=== PATIENT | female | born 1970 | race Caucasian/White ===

== ENCOUNTER 2020-03-04 10:06 | Emergency (ER) | payer OTHER, SELFPAY ==
[2020-03-04 10:15] VITALS: BP 142/89; PULSE 69; RESP 20; TEMP 36.6; O2SAT 99
--- NOTE | 2020-03-04 10:33 | ED.URI ---
HPI - URI/Sore Throat General Chief Complaint: Upper Respiratory Infection Stated Complaint: sore throat Time Seen by Provider: 03/04/20 10:07 Source: patient Mode of arrival: ambulatory Limitations: no limitations History of Present Illness HPI Narrative: 49-year-old female presents to [facility] care with complaints of sore throat, body aches and nasal congestion since yesterday. Patient has been taking [id number] Tylenol with minimal relief. Patient denies fever, chills, cough, shortness of breath, wheezing, runny nose, nausea, vomiting or diarrhea. Patient denies sick contacts. Patient denies recent travel. Patient denies concerns for STDs. MD elicited complaint: sore throat, nasal congestion and other (body aches) Onset (ago): day(s) (1) Able to tolerate fluids by mouth: Yes Treatments prior to arrival: acetaminophen Related Data Allergies Allergy/AdvReac Type Severity Reaction Status Date / Time No Known Allergies Allergy Verified 07/04/12 06:17 Review of Systems Constitutional: Constitutional: Denies chills, Denies fatigue, Denies fever(s) and Denies weakness Comments: Body aches ENT: Denies dysphagia, Denies vertigo, Denies dizziness, Denies epistaxis, Reports nasal congestion and Reports sore throat Cardiovascular: Cardiovascular: Denies chest pain, Denies rapid heart rate, Denies radiating jaw, neck or arm pain and Denies slow heart rate Respiratory: Respiratory: Denies chest congestion, Denies cough, Denies dyspnea and Denies wheezing Gastrointestinal: Gastrointestinal: Denies abdominal pain, Denies constipation, Denies diarrhea, Denies nausea and Denies vomiting Musculoskeletal: Musculoskeletal: Denies back pain Neurologic: Denies vertigo, Denies headache(s) and Denies numbness [facility] Past Medical History Medical History (Updated 03/04/20 @ 10:44 by Sol Handy APRN) Arthralgia Celiac disease Mood swing Family History Family History Grandparent Diabetes mellitus Mother Hypertension Patient's mother is in good health Family history of cardiovascular disease Family history of arthritis Family history of malignant neoplasm Father Patient's father is in good health Sibling Patient's sister is in good health Other Family history of osteoarthritis Social History Social History Social History: Smoking packs per day: 0.5 Smoking cigarettes per day: 10.0 Smoking status: Former smoker Tobacco type: cigarettes Second hand tobacco smoke exposure: No Smoking end date: 06/26/98 Alcohol intake: current Drinks per week: 4 Substance use: never Substance use type: does not use Gender identity (if verbalized by the patient): Female Exam Const: General: healthy appearing, no acute distress and alert Orientation/consciousness: patient oriented x3 HENMT: Ears: external ears normal and TM's normal bilaterally General nose exam: Normal external nose present and Normal nares present Face and sinus: normal facial exam and sinuses nontender Mouth: Yes Normal oral and palatal mucosa present, Yes lip normal and Yes moist mucous membranes Teeth and gingiva: dentition normal Throat: uvula midline Other: Erythema and moderate swelling noted to bilateral tonsils. There are few mild ulcerations noted to posterior pharynx. no peritonsillar abscess noted. Neck: Neck: normal visual inspection Resp: Effort & Inspection: normal respiratory effort Auscultation: clear to auscultation bilaterally, no rales, no rhonchi and no wheezes Cardio: Rate: regular rate, not bradycardic and not tachycardic Rhythm: regular rhythm and regular rhythm Skin: General skin exam: normal color Rashes: no rashes Neuro: General: patient oriented x3, moves all extremities and no meningeal signs Extrem: General: normal to inspection Psych: Mental Status: mental status sraitha
== END 2020-03-04 10:53 | disposition home or self-care (01) ==
PROVIDERS: Emergency Provider Nurse Practitioner Family; PCP Family Medicine
DX: J03.90 Acute tonsillitis, unspecified (principal); Z87.891 Personal history of nicotine dependence
CPT/HCPCS: 87081; 87880; 99213; G0463

== ENCOUNTER 2020-09-15 16:34 | Outpatient (CLI) | payer OTHER, SELFPAY ==
--- NOTE | ~2020-09-15 | MM_ITS ---
EXAMINATION: MM screening [facility] BI w veronica HISTORY: Screening mammogram TECHNIQUE: Craniocaudal and mediolateral oblique 3-D tomosynthesis images were obtained and synthetic 2-D images were generated. CAD analysis was submitted and interpreted. COMPARISON: 07/16/2019, 07/13/2018 BREAST PARENCHYMAL COMPOSITION: There are scattered areas of fibroglandular density. FINDINGS: There is no evidence of suspicious mass, calcification, or architectural distortion to sugg est malignancy in either breast. There has been no suspicious interval change. IMPRESSION: 1. No mammographic evidence of malignancy. 2. Recommend routine screening mammography in one year. BI-RADS Category 1: Negative Reviewed, dictated and finalized at location A.
== END 2020-09-15 16:35 | disposition home or self-care (01) ==
LOC: ANHIMG 16:36
PROVIDERS: PCP Family Medicine; Visit Provider Family Medicine
DX: Z12.31 Encounter for screening mammogram for malignant neoplasm of breast (principal)
CPT/HCPCS: 77063; 77067

== ENCOUNTER → 2020-10-05 02:27 | Outpatient (CLI) | payer OTHER, SELFPAY ==
[2020-10-05 19:42] LABS: SARS-CoV-2 RNA PCR Negative
== END ==
PROVIDERS: PCP Family Medicine; Visit Provider Orthopaedic Surgery
DX: Z01.812 Encounter for preprocedural laboratory examination (principal); Z20.822 Contact with and (suspected) exposure to COVID-19
CPT/HCPCS: C9803; U0003; U0005

== ENCOUNTER 2020-10-08 00:19 | Day surgery (SDC) | payer OTHER, SELFPAY ==
[2020-09-22 14:37] VITALS: BMI 27.5
--- NOTE | 2020-10-07 13:44 | PM.IMHP ---
H&P: HPI History of Present Illness Date/Time: 10/07/20 13:44 Chief Complaint: Left foot pain Narrative: left foot pain and numbness secondary to 3rd intermetatarsal space neuroma. Patient has failed previous cortisone injections. Presents now for operative treatment. Review of Systems Constitutional: Constitutional: Denies fever(s) Eyes: Eyes: Denies blurry vision ENT: Reports Normal hearing present Cardiovascular: Cardiovascular: Denies chest pain and Denies dyspnea Respiratory: Respiratory: Denies dyspnea and Denies wheezing Gastrointestinal: Gastrointestinal: Denies abdominal pain Genitourinary: Genitourinary: Denies urinary urgency Musculoskeletal: Musculoskeletal: Reports as per HPI and Denies numbness Integumentary/Breasts: Skin/Breast: Denies changing lesions and Denies sores Neurologic: Reports Normal hearing present, Denies behavioral changes, Denies confusion, Denies numbness and Denies convulsions Psychiatric: Psychiatric: Denies behavioral changes, Denies confusion and Denies hallucinations Endocrine: Endocrine: Denies heat intolerance Hematologic/Lymphatic: Hematologic/Lymphatic: Denies easy bleeding Allergic/Immunologic: Allergic/Immunologic: Denies wheezing PMFSH Past Medical History Medical History Arthralgia Arthritis Celiac disease Mood swing Wears glasses Surgical History Surgical History History of hysterectomy Family History Family History Grandparent Diabetes mellitus Mother Hypertension Patient's mother is in good health Family history of cardiovascular disease Family history of arthritis Family history of malignant neoplasm Father Patient's father is in good health Sibling Patient's sister is in good health Other Family history of osteoarthritis Neuropathy Social History Social History Social History: Smoking packs per day: 0.5 Smoking cigarettes per day: 10.0 Smoking status: Never smoker Tobacco type: cigarettes Second hand tobacco smoke exposure: No Smoking end date: 06/26/98 Alcohol intake: current Drinks per week: 4 Substance use: never Substance use type: does not use Gender identity (if verbalized by the patient): Female Spiritual care concerns: No Meds Home Medications and Allergies Home Medications Medication Instructions Recorded Confirmed Type celecoxib 100 mg capsule 100 mg PO DAILY #30 cap 05/14/20 09/22/20 Rx fluoxetine 40 mg capsule 40 mg PO DAILY 08/20/20 09/22/20 History Allergies Allergy/AdvReac Type Severity Reaction Status Date / Time No Known Allergies Allergy Verified 09/22/20 14:40 Exam Const: General: No confusion Orientation/consciousness: No confusion HENMT: Head: normal to inspection, normocephalic and atraumatic Eyes: Conjunctivae: conjunctivae normal Sclera: sclerae normal Neck: Neck: supple and nontender Chest: Chest palpation & inspection: normal inspection of the chest Resp: Effort & Inspection: normal respiratory effort and no audible wheezes Cardio: Rate: regular rate Rhythm: regular rhythm : General: Yes deferred Skin: General skin exam: no rashes or lesions noted Neuro: General: No confusion Extrem: General: capillary refill normal Right upper extremity: normal to inspection Left upper extremity: normal to inspection Right lower extremity: normal to inspection, hip/thigh Details: normal to inspection and foot Details: vascular exam Details: dorsalis pedis pulse present and normal capillary refill and motor-sensory exam Details: light-touch normal; no tenderness Left lower extremity: hip/thigh Details: normal to inspection, knee Details: abnormal ROM ( range of motion deferred secondary to fracture), ankle (no calf te
[2020-10-08] VITALS (7 sets, daily range): BP systolic 128–156; BP diastolic 83–97; PULSE 61–100; RESP 12–18; TEMP 36.2; O2SAT 99–100
[2020-10-08] MEDS: ACETAMINOPHEN 500 MG TABLET 1000 MG PO (06:41)
[2020-10-08] MEDS: LACTATED RINGERS 1,000 ML 30 ML IV CONT ×2 (06:45→08:25)
--- NOTE | 2020-10-08 06:51 | WPDANESEPPF ---
Anes - Initial Pre Proc Eval Procedure: Operation Date: 10/08/20 07:30 Proposed Procedures p Excision Of Neuroma, Left Foot - Juan Mix MD Date/Time: 10/08/20 06:51 Surgeon: Juan Mix MD Pre Op Diagnosis: Left third IMS neuroma Patient Data Age: 50 Gender: F Height: 5 ft 5 in Weight: 75 kg Allergies Allergy/AdvReac Type Severity Reaction Status Date / Time No Known Allergies Allergy Verified 09/22/20 14:40 Home Medications Medication Instructions Recorded Confirmed Type celecoxib 100 mg capsule 100 mg PO DAILY #30 cap 05/14/20 09/22/20 Rx fluoxetine 40 mg capsule 40 mg PO DAILY 08/20/20 09/22/20 History Patient hx anesthesia problems: none Family hx anesthesia problems: none PMFSH Past Medical History Medical History Arthralgia Arthritis Celiac disease Mood swing Wears glasses Surgical History Surgical History History of hysterectomy Family History Family History Grandparent Diabetes mellitus Mother Hypertension Patient's mother is in good health Family history of cardiovascular disease Family history of arthritis Family history of malignant neoplasm Father Patient's father is in good health Sibling Patient's sister is in good health Other Family history of osteoarthritis Neuropathy Social History Social History Social History: Smoking packs per day: 0.5 Smoking cigarettes per day: 10.0 Smoking status: Never smoker Tobacco type: cigarettes Second hand tobacco smoke exposure: No Smoking end date: 06/26/98 Alcohol intake: current Drinks per week: 4 Substance use: never Substance use type: does not use Living arrangements: with family Gender identity (if verbalized by the patient): Female Spiritual care concerns: No Anes - Eval Final PreProcedure Day of Procedure 10/08/20 06:51 Patient weight: overweight Heart: regular rate and rhythm Lungs: clear to auscultation Airway: Mallampati scale class II Neurological: alert and oriented Last oral intake: >/= 8 hours ASA classification: II Emergent: no Anesthetic plan: proceed Anesthesia type and monitoring: general LMA and standard monitoring Informed Consent: The patient's anesthetic plan and its attendant risks and benefits were discussed with the patient/family/POA. Questions were solicited and answers provided to the satisfaction of the patient/family/POA.
--- NOTE | 2020-10-08 07:10 | SUR.PREOP ---
PT STATES SHE DOES KNOW HOW TO USE CRUTCHES, DENIES NEED FOR INSTRUCTION. CRUTCHES ORDERED
--- NOTE | 2020-10-08 07:17 | WPDHPUPDATE1 ---
History and Physical Update Update Date/Time: 10/08/20 07:17 History and Physical has been reviewed, including an updated exam of the patient. There are NO changes in the patient's condition. Covid test negative. Risks, benefits, and alternatives have been discussed and questions answered. Patient agrees to proceed with procedure.
[2020-10-08] MEDS: ceFAZolin 2 GM/D5W 50 ML 2 GM/50 ML BAG IVPB (07:26)
[2020-10-08] MEDS: BUPIVACAINE HCL 0.5% PF 30 ML VIAL INFILTRATE (07:58)
--- NOTE | 2020-10-08 08:32 | P.OP_ITS ---
Procedure Note - Detailed Date of procedure: 10/08/20 Pre-op diagnosis: Left third IMS neuroma Post-op diagnosis: same Procedure performed: Excision left foot neuroma Description of procedure: Indications: Patient is a 50-year-old woman with a left foot intermetatarsal neuroma. She has had cortisone injections which gave temporary relief. She presents now for operative treatment. What was done: Patient identified in the preoperative holding. Informed consent given. Operative extremity marked. Patient received intravenous antibiotics. Patient brought to the operating room where underwent general anesthetic by anesthesia team. Positioned supine on operating room table. Time-out performed confirming the patient, site of the surgery and the plan. Left foot prepped draped usual sterile surgical fashion using a ChloraPrep skin solution. Foot and ankle exsanguinated, calf tourniquet inflated to 225 mmHg. Longitudinal incision made in the left foot 3rd intermetatarsal space with a 15 blade knife from the dorsum. Hemostasis controlled electrocautery. Dissection carried down to the intermetatarsal ligament which was incised in line with skin incision. Large neuroma visualized. This was released from the bifurcation sharply. This was then tracked proximally deep in the intermetatarsal musculature the nerve was transected. Specimen passed off. Wound inspected and no further neural elements noted. Wound thoroughly irrigated and closed with 3 Monocryl interrupted suture and 4 O nylon running suture. Sterile dressing applied. The patient was then woken from anesthesia, extubated and taken to the recovery room in stable condition. All sponge, needle, instrument counts were correct at the end of the case. Implants: None Anesthesia: GLMA Surgeon: Juan Mix MD Prepress Proofer: 1st technical services assistant Estimated blood loss (mL): 2 Tourniquet time (min): 20 Drains: No Packing: No Pathology: yes (Neuroma) Complications: None Condition: stable Disposition: PACU
== END 2020-10-08 09:44 | disposition home or self-care (01) ==
PROVIDERS: PCP Family Medicine; Visit Provider Orthopaedic Surgery
PROC: (CPT 28080; principal; 2020-10-08 07:30)
DX: G57.62 Lesion of plantar nerve, left lower limb (principal); K90.0 Celiac disease; Z87.891 Personal history of nicotine dependence
CPT/HCPCS: 28080; 88304; A9270; J0690; J1100; J2250; J2405; J2704; J3010; J7120